=== PATIENT | female | born 1955 | race African-American/Black ===

== ENCOUNTER 2019-09-20 09:48 | Outpatient (CLI) | payer MEDICAID ==
[~2019-09-20] VITALS: Ht 154.9 cm; Wt 78.0 kg
[2019-09-20 12:20] VITALS: BP 131/91
--- NOTE | 2019-09-20 16:15 | Consultation ---
DATE OF CONSULTATION: 09/20/2019 GASTROENTEROLOGY CONSULTATION CONSULTING PHYSICIAN: Erich Roberts M.D. HISTORY OF PRESENT ILLNESS: This is a 64-year-old female patient who presents with complaint of abdominal pain. The patient states that she has been suffering from chronic acid reflux. In addition, the patient has been having persistent diarrhea. The patient also notes that she has been having occasional rectal pain. The patient has no history of a colonoscopy. The patient has no history of endoscopy. The patient was a recent admission to [facility] where a CT was done, noted that the patient had gastric diverticulum. During that admission, antibiotics were given and the patient was discharged. The patient denies any weight loss or denies any changes in dietary habits. The patient is ambulatory and is not a fall risk. PAST MEDICAL HISTORY: The patient denies any significant past medical history. PAST SURGICAL HISTORY: The patient had glaucoma surgery, hemorrhoid, partial hysterectomy, left ovary removal, umbilical hernia, tonsillectomy. The patient had a leg and back cyst removed. ALLERGIES: The patient is allergic to penicillin. She becomes swollen and the severity is severe. ABUSE HISTORY: There are no signs of any abuse or neglect. REVIEW OF SYSTEMS: A 10-point system are negative unless mentioned in the HPI. PHYSICAL EXAMINATION: VITAL SIGNS: Temperature is 97.8, blood pressure 131/91, pulse 69, oxygen saturation is 97, height is 5 feet 1 inch, weight is 172 pounds. GENERAL: No apparent distress. Alert and oriented x4. Ambulatory. HEENT: Head is atraumatic, normocephalic. NECK: Supple. CARDIOVASCULAR: Regular rate and rhythm. LUNGS: Clear bilaterally to auscultation. ABDOMEN: Soft. Has mild tenderness in the epigastric region. Nondistended. EXTREMITIES: No pedal edema. No cyanosis. LABORATORY DATA: No laboratory data obtained at this time. ASSESSMENT: This is a 64-year-old female patient presents with abdominal pain secondary to GERD and complained of rectal pain and diarrhea. INITIAL IMPRESSION: 1. Abdominal pain. 2. GERD. 3. Diarrhea. 4. Dehydration. 5. Rectal pain. 6. Hemorrhoidal pain. 7. Gastric diverticulum as seen on recent CT scan. PLAN: Plan is to schedule the patient for endoscopy and colonoscopy when prior authorization is obtained. EGD and colonoscopy preparation and medications given and acknowledged by the patient. We will contact the patient once we received the prior authorization. We will follow up with additional recommendations post procedure. Thank you for this referral. Erich Roberts M.D. Enedina-Rene Lombardi N.P. DR: DEB JOB#: [id number] CC:
== END 2019-09-20 11:48 | disposition home or self-care (01) ==
LOC: PAN 09:48
DX: R10.9 Unspecified abdominal pain (principal); K21.9 Gastro-esophageal reflux disease without esophagitis; R19.7 Diarrhea, unspecified; E86.0 Dehydration; K62.89 Other specified diseases of anus and rectum; K57.90 Diverticulosis of intestine, part unspecified, without perforation or abscess without bleeding; Z90.710 Acquired absence of both cervix and uterus; Z88.0 Allergy status to penicillin
CPT/HCPCS: G0463